=== PATIENT | female | born 2005 | race African-American/Black ===

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

== ENCOUNTER 2025-11-12 00:47 | Emergency (ER) | payer OTHER, MEDICAID ==
[~2025-11-12] VITALS: Ht 162.6 cm; Wt 55.4 kg
[2025-11-12 01:12] VITALS: BP 110/82; PULSE 77; RESP 16; TEMP 36.7; O2SAT 98
== END 2025-11-12 01:28 | disposition home or self-care (01) ==
LOC: ER 00:47
DX: M79.645 Pain in left finger(s) (principal)
CPT/HCPCS: 99283

== ENCOUNTER 2025-11-21 12:09 | Emergency (ER) | payer MEDICAID, OTHER ==
[~2025-11-21] VITALS: Ht 162.6 cm; Wt 49.0 kg
[2025-11-21 12:27] VITALS: BP 99/48; RESP 16; TEMP 36.7; O2SAT 99
[2025-11-21 12:31] VITALS: PULSE 99; O2SAT 99
[2025-11-21] MEDS ORDERED: KETOROLAC 30MG/ML VIAL IM ONE (13:15)
[2025-11-21] MEDS ORDERED: IBUP-2437 MT (14:45)
== END 2025-11-21 16:31 | disposition home or self-care (01) ==
LOC: ER 12:09 → EDBD 12:09 → ER 16:31
DX: S60.00XA Contusion of unspecified finger without damage to nail, initial encounter (principal); X58.XXXA Exposure to other specified factors, initial encounter; Y93.89 Activity, other specified; Y92.89 Other specified places as the place of occurrence of the external cause; Y99.8 Other external cause status
CPT/HCPCS: 73090; 73130; 99284